=== PATIENT | female | born 1940 | race Caucasian/White ===

== ENCOUNTER → 2017-01-12 10:34 | Outpatient (CLI) | payer MEDICARE, OTHER ==
[2016-10-15 19:47] VITALS: BMI 28.0
[~2017-01-12 10:34] MED LIST: CARDIZEM CD180 MG PO; CORDARONE200 MG PO; EFFEXOR75 MG PO; FISH OIL 1,0001 CA1 PO; LAMICTAL100 MG PO; LOW DOSE ASPIRI81 M1 PO; MYSOLINE 50 MG50 MG PO; PACERONE200 MG PO; PERI-COLACE TAB1 TAB PO; PLAVIX75 MG PO; PRAVACHOL20 MG; PRAVACHOL20 MG PO; PRILOSEC20 MG PO; PRINIVIL20 MG PO; PROAIR HFA8.5 GM INH; TENORMIN25 MG PO; XARELTO15 MG PO; ZITHROMAX250 MG PO; ZYRTEC10 MG PO
== END | disposition home or self-care (01) ==
LOC: D.CT 10:34
DX: R41.3 Other amnesia (principal)

== ENCOUNTER 2017-02-08 01:47 | Emergency (ER) | payer MEDICARE, OTHER ==
[2016-10-15 19:47] VITALS: BMI 28.0
[2017-02-08 03:28] LABS: APPEARANCE CLEAR (CLEAR); BILIRUBIN NEGATIVE (NEGATIVE); COLOR YELLOW (YELLOW); GLUCOSE NEGATIVE (NEGATIVE); KETONE NEGATIVE (NEGATIVE); LEUKOCYTE ESTERASE NEGATIVE (NEGATIVE); NITRITE NEGATIVE (NEGATIVE); PROTEIN NEGATIVE (NEGATIVE); SPECIFIC GRAVITY 1.015 (1.005-1.020); UROBILINOGEN NORMAL (NORMAL)
[2017-02-08 03:29] LABS: BASOPHILS 0.2 % (0-2); EOSINOPHILS 4.2 % (0-7); HEMATOCRIT 37.2 % (36.0-48.0); IMMATURE GRANULOCYTES 0.1 % (0-5); LYMPHOCYTES 18.9 % (15-50); MCHC 32.3 g/dL (31.0-37.0); MCV 99.2 fL (80.0-100.0); MONOCYTES 13.8 % (2-11); NEUTROPHILS 62.8 % (40-80); PLATELET COUNT 167 10x3/uL (130-400); RBC 3.75 10x6/uL (4.00-5.40); RDW 13.9 % (11.5-14.5); WBC 8.4 10x3/uL (4.8-10.8)
[2017-02-08 03:37] LABS: ALBUMIN 3.6 g/dL (3.4-5.0); BILIRUBIN - TOTAL 0.3 mg/dL (0.2-1.3); CALCIUM 8.7 mg/dL (8.5-10.1); CARBON DIOXIDE 28.5 mmol/L (21.0-32.0); CREATININE - SERUM 2.4 mg/dL (0.6-1.3); POTASSIUM - SERUM 3.5 mmol/L (3.5-5.1); PROTEIN - SERUM 6.9 g/dL (6.4-8.2)
== END 2017-02-08 06:01 | disposition home or self-care (01) ==
LOC: D.ER 01:47
PROVIDERS: Emergency Medicine Emergency Medical Services
DX: S39.012A Strain of muscle, fascia and tendon of lower back, initial encounter (principal); X58.XXXA Exposure to other specified factors, initial encounter; Y93.89 Activity, other specified; Y92.89 Other specified places as the place of occurrence of the external cause; E86.0 Dehydration; Z95.1 Presence of aortocoronary bypass graft; I10 Essential (primary) hypertension; Z95.0 Presence of cardiac pacemaker

== ENCOUNTER 2017-06-15 14:11 | Emergency (ER) | payer MEDICARE, OTHER ==
[2016-10-15 19:47] VITALS: BMI 28.0
[2017-06-15 15:51] LABS: APPEARANCE CLEAR (CLEAR); BILIRUBIN NEGATIVE (NEGATIVE); COLOR YELLOW (YELLOW); GLUCOSE NEGATIVE (NEGATIVE); KETONE NEGATIVE (NEGATIVE); LEUKOCYTE ESTERASE NEGATIVE (NEGATIVE); NITRITE NEGATIVE (NEGATIVE); PROTEIN NEGATIVE (NEGATIVE); UROBILINOGEN NORMAL (NORMAL)
[2017-06-15 16:12] LABS: BASOPHILS 0.4 % (0-2); EOSINOPHILS 3.4 % (0-7); HEMATOCRIT 38.9 % (36.0-48.0); HEMOGLOBIN 12.9 g/dL (12-16); IMMATURE GRANULOCYTES 0.1 % (0-5); LYMPHOCYTES 14.3 % (15-50); MCH 33.3 pg (26.0-34.0); MCHC 33.2 g/dL (31.0-37.0); MCV 100.5 fL (80.0-100.0); MEAN PLATELET VOLUME 11.1 fL (7.4-10.4); MONOCYTES 10.5 % (2-11); NEUTROPHILS 71.3 % (40-80); PLATELET COUNT 150 10x3/uL (130-400); RBC 3.87 10x6/uL (4.00-5.40); RDW 13.2 % (11.5-14.5); WBC 6.9 10x3/uL (4.8-10.8)
[2017-06-15 16:27] LABS: APTT 28.9 SECONDS (22.8-39.4); INR 1.04 (0.85-1.17); PROTIME 13.4 SECONDS (11.6-15.0)
[2017-06-15 16:33] LABS: ALBUMIN 3.6 g/dL (3.4-5.0); ALKALINE PHOSPHATASE 118 U/L (46-116); ALT (SGPT) 54 U/L (10-68); BILIRUBIN - TOTAL 0.27 mg/dL (0.2-1.3); CALC OSMOLALITY 285 mosm/kg (275-300); CALCIUM 8.8 mg/dL (8.5-10.1); CARBON DIOXIDE 29.9 mmol/L (21.0-32.0); CHLORIDE - SERUM 100 mmol/L (98-107); CREATININE - SERUM 1.7 mg/dL (0.6-1.3); GLUCOSE 114 mg/dL (74-106); POTASSIUM - SERUM 3.6 mmol/L (3.5-5.1); PROTEIN - SERUM 7.5 g/dL (6.4-8.2); SODIUM 139 mmol/L (136-145); UREA NITROGEN 32 mg/dL (7-18); eGFR NON AFRICAN AMERICAN 31 mL/min (90-120)
[2017-06-15 16:37] LABS: CREATINE KINASE 97 UL (21-215)
[2017-06-15 16:38] LABS: TROPONIN-I < 0.017 ng/mL (0.000-0.060)
== END 2017-06-15 20:03 | disposition home or self-care (01) ==
LOC: D.ER 14:11
PROVIDERS: Emergency Medicine; Nurse Practitioner Acute Care
DX: K59.00 Constipation, unspecified (principal); I10 Essential (primary) hypertension; Z95.0 Presence of cardiac pacemaker; I44.7 Left bundle-branch block, unspecified

== ENCOUNTER → 2017-08-22 09:51 | Outpatient (CLI) | payer MEDICARE, OTHER ==
[2016-10-15 19:47] VITALS: BMI 28.0
[~2017-08-22 09:51] MED LIST changes: +AUGMENTIN 875-11 TAB PO; +DOXYCYCLINE HY100 M2 PO; +EFFEXOR XR75 MG PO; +VESICARE10 MG PO
== END | disposition home or self-care (01) ==
LOC: D.CT 09:00
DX: N28.89 Other specified disorders of kidney and ureter (principal)

== ENCOUNTER 2017-09-05 13:44 | Inpatient (IN) | payer MEDICARE, OTHER ==
[~2017-09-05] VITALS: Ht 162.6 cm; Wt 65.8 kg
[~2017-09-05 13:44] MED LIST changes: -AUGMENTIN 875-11 TAB PO; -DOXYCYCLINE HY100 M2 PO; -EFFEXOR XR75 MG PO; -VESICARE10 MG PO
[2017-09-05 14:39] LABS: BASOPHILS 0.1 % (0-2); EOSINOPHILS 0.4 % (0-7); HEMATOCRIT 41.2 % (36.0-48.0); HEMOGLOBIN 13.5 g/dL (12-16); IMMATURE GRANULOCYTES 0.2 % (0-5); LYMPHOCYTES 10.8 % (15-50); MCH 32.6 pg (26.0-34.0); MCHC 32.8 g/dL (31.0-37.0); MCV 99.5 fL (80.0-100.0); MEAN PLATELET VOLUME 11.3 fL (7.4-10.4); MONOCYTES 8.9 % (2-11); NEUTROPHILS 79.6 % (40-80); RBC 4.14 10x6/uL (4.00-5.40); RDW 13.7 % (11.5-14.5); WBC 16.1 10x3/uL (4.8-10.8)
[2017-09-05 14:45] LABS: PLATELET COUNT 200 10x3/uL (130-400)
[2017-09-05 15:02] LABS: ALBUMIN 3.8 g/dL (3.4-5.0); ANION GAP 15.7 mmol/L (8-16); BILIRUBIN - TOTAL 0.73 mg/dL (0.2-1.3); CARBON DIOXIDE 28.4 mmol/L (21.0-32.0); CREATININE - SERUM 1.5 mg/dL (0.6-1.3); POTASSIUM - SERUM 3.1 mmol/L (3.5-5.1)
[2017-09-05 15:29] LABS: APPEARANCE CLEAR (CLEAR); BILIRUBIN NEGATIVE (NEGATIVE); COLOR YELLOW (YELLOW); GLUCOSE NEGATIVE (NEGATIVE); KETONE NEGATIVE (NEGATIVE); NITRITE NEGATIVE (NEGATIVE); PROTEIN TRACE mg/dL (NEGATIVE); UROBILINOGEN NORMAL (NORMAL)
[2017-09-05 15:30] LABS: BACTERIA MANY /hpf (NONE SEEN); EPITHELIAL CELLS 0-5 /hpf (0-5); RED CELLS - URINE 0-5 /hpf (0-5); WHITE CELLS - URINE 25-50 /hpf (0-5)
--- NOTE | 2017-09-05 19:00 | NUR ---
REPORT RECEIVED AND CARE OF PT ASSUMED. PT LYING IN SEMI HARRINGTON'S POSITION VISITING WITH HER DAUGHTER. IV IN LEFT UPPER ARM PATENT WITH NS INFUSING AT 80 ML/ HR. WILL MONITOR CLOSELY FOR NEEDS.
--- NOTE | 2017-09-05 19:41 | NUR ---
PT OFF FLOOR TO RADIOLOGY VIA WHEELCHAIR.
--- NOTE | 2017-09-05 20:00 | NUR ---
PT RETURNED TO FLOOR FROM RADIOLOGY.
--- NOTE | 2017-09-05 22:29 | NUR ---
RECEIVED ORDER FROM DR BOATENG FOR NORCO 5 PRN Q8HR FOR PAIN IN JAW AND EAR.
[2017-09-05 22:39] VITALS: BP 188/101; BMI 24.9
[2017-09-05 23:01] VITALS: BP 188/101
[2017-09-05] MEDS ORDERED: EFFEXOR XR75 MG PO (23:08)
[2017-09-05] MEDS ORDERED: VESICARE10 MG PO (23:08)
--- NOTE | 2017-09-05 23:09 | NUR ---
ADMISSION ASSESSMENT AND HISTORY COMPLETE.
--- NOTE | 2017-09-05 23:58 | NUR ---
GAVE NORCO 5 PO PER PRN ORDER PER PT REQUEST FOR PAIN IN LEFT FACE AND EAR. WILL MONITOR FOR EFFECTIVENESS.
[2017-09-06 04:46] VITALS: BP 117/72
[2017-09-06 05:22] LABS: BASOPHILS 0.1 % (0-2); EOSINOPHILS 0.7 % (0-7); HEMOGLOBIN 12.7 g/dL (12-16); IMMATURE GRANULOCYTES 0.2 % (0-5); LYMPHOCYTES 13.3 % (15-50); MCH 32.6 pg (26.0-34.0); MCHC 33.4 g/dL (31.0-37.0); MEAN PLATELET VOLUME 11.1 fL (7.4-10.4); MONOCYTES 12.4 % (2-11); NEUTROPHILS 73.3 % (40-80); PLATELET COUNT 185 10x3/uL (130-400); RDW 13.6 % (11.5-14.5); WBC 15.8 10x3/uL (4.8-10.8)
[2017-09-06 05:33] LABS: MCV 97.4 fL (80.0-100.0)
[2017-09-06 05:41] LABS: ALBUMIN 3.2 g/dL (3.4-5.0); BILIRUBIN - TOTAL 0.6 mg/dL (0.2-1.3); CALCIUM 8.8 mg/dL (8.5-10.1); CARBON DIOXIDE 27.1 mmol/L (21.0-32.0); CREATININE - SERUM 1.4 mg/dL (0.6-1.3); PROTEIN - SERUM 7.5 g/dL (6.4-8.2)
[2017-09-06 05:48] LABS: ANION GAP 13.5 mmol/L (8-16); POTASSIUM - SERUM 2.6 mmol/L (3.5-5.1)
--- NOTE | 2017-09-06 06:11 | NUR ---
POTASSIUM LEVEL CRITICALLY LOW AT 2.[address] BOATENG WHO ORDERED THE ELECTROLYTE REPLACEMENT PROTOCOL.
--- NOTE | 2017-09-06 06:17 | NUR ---
WILL GIVE POTASSIUM PO 20 MEQ Q2 HR X3 DOSES. FIRST DOSE NOW...WILL PASS ON IN REPORT.
--- NOTE | 2017-09-06 08:05 | NUR ---
UP AT BEDSIDE WITH FAMILY TO VISIT.PT WITHOUT DISTRESS.CALL LIGHT IN REACH
[2017-09-06 08:42] VITALS: BP 183/75
--- NOTE | 2017-09-06 09:35 | NUR ---
RECIEVED ORDERS TO APPLY SCD'S TO PT, WHILE APPLYING SCD'S AND GIVING PT SECOND RIDER PROFESSOR OF BUSINESS ADMINISTRATION CAME IN AND ADVISED PT WAS NOW BEING PLACED UNDER CONTACT ISOLATION UNTIL FURTHER NOTICE DUE TO ADMITTING DX, PT AND FAMILY VERY UNDERSTANDING. CONTINUE WITH PT CARE PLAN
[2017-09-06 11:26] VITALS: BP 162/76
--- NOTE | 2017-09-06 12:13 | NUR ---
Patient Name: LIANA AREVALO Admission Status: Elective Accout number: [id number] Admission Date: 09-05-2017 : 1940 Admission Diagnosis: Attending: RIGO BOATENG Current LOS: 1 Anticipated DC Date: 09-08-2017 Planned Disposition: Home Primary Insurance: MEDICARE A & B Discharge Planning Comments: CM MET WITH PATIENT AND CALLED DAUGHTER (SERGIO) REGARDING D/C NEEDS AND PLANS. PATIENT LIVES ALONE AT [facility] AND HAS A COMMUNICATION LECTURER ([place]) THAT COMES 2-3X DAILY. PATIENT STATE SHE HAS NO STEPS OR STAIRS TO USE AT HER HOME. PATIENTS STATED SHE HAS HELP WITH BATHING, DRESSING, AND MEDICATION. PATIENT HAS A CANE AND SHOWER STOOL AT HOME. PATIENTS PCP IS DR. BOATENG AND PHARMACY IS [facility]. PATIENT IS REFUSING HOME HEALTH AT THIS TIME. CM WILL CONTINUE TO FOLLOW PATIENT WITH D/C NEEDS AND PLANS. PCP [facility]- [phone] SERGIO (DAUGHTER) [phone] Premises Technician: Charissa Leigh Is the patient Alert and Oriented? Yes 0 * How many steps to enter\exit or inside your home? 0 0 * PCP DR. BOATENG 0 * Pharmacy [facility] 0 * Preadmission Environment Home Alone 0 * ADLs Partial Dependent 0 * Partial ADLs (Assistance needed) Ambulation Bathing Dressing Medication Management 0 * Equipment Cane Shower Chair 0 * List name and contact numbers for known caregivers / representatives who currently or will assist patient after discharge: SERGIO MCMAHON [phone] 0 * Community resources currently utilized Other 0 * Please name any agencies selected above. [facility] ([facility]) [phone] 0 * Additional services required to return to the preadmission environment? Yes 0 * Can the patient safely return to the preadmission environment? Yes 0 * Has this patient been hospitalized within the prior 30 days at any hospital? No 0 Grand Total: 0
--- NOTE | 2017-09-06 13:49 | NUR ---
CALLED [facility] AND PER [facility] SYSTEM WENT DOWN YESTERDAY SO REPORTS DID NOT DOWNLOAD WILL CALL DR BOATENG'S OFFICE TO SEE IF HE WANTS REPORT FAXED
--- NOTE | 2017-09-06 13:56 | NUR ---
CALLED [facility] AND SPOKE TO RICKEY, ASKED TO FAX REPORT TO [phone]
[2017-09-06 14:35] VITALS: Ht 162.6 cm; Wt 65.8 kg
[2017-09-06 16:10] VITALS: BP 130/73
--- NOTE | 2017-09-06 16:11 | NUR ---
CALLED [facility] SPOKE WITH SIMON IN REGARDS TO FAXED CT REPORT AT 1356. STATED SHE WOULD CHECK FAX AND LET ME KNOW, PER ROD IN READING ROOM INTERFACE WAS DOWN YESTERDAY THEREFORE REPORTS HAVE BEEN PENDED AND NOT UPLOADED TO SYSTEM.
--- NOTE | 2017-09-06 19:38 | NUR ---
PATIENT'S DAUGHTER CAME TO THE NURSING DESK IRRATE AND DEMANDING RESULTS FOR THE FLU TEST. SHE THREATENED TO CALL KAY THE DON IF SHE DIDN'T HAVE THE RESULTS IN 5 MINUTS. RAPID FLU TEST RESULTS ARE STILL PENDING.
[2017-09-06 20:00] VITALS: BP 156/97
[2017-09-07] VITALS: BP 133/79
--- NOTE | 2017-09-07 01:41 | NUR ---
PATIENT CONFUSED, UNSTEADY ON FEET, FIDGETY WITH GOWN. SCOTTY ALARM TURNED ON, PATIENT REORIENTATATED TO CALL LIGHT.
--- NOTE | 2017-09-07 02:00 | NUR ---
PT RESTING IN BED WITH NO DISTRESS. RESPIRATIONS EVEN AND UNLABORED. ISOLATION PRECAUTIONS IN PLACE. SIDE RAILS X 2. BED LOW. BED ALARM ON. CALL LIGHT IN REACH.
[2017-09-07 04:00] VITALS: BP 138/72
[2017-09-07 05:31] LABS: BASOPHILS 0.2 % (0-2); EOSINOPHILS 1.9 % (0-7); HEMATOCRIT 38.2 % (36.0-48.0); HEMOGLOBIN 12.7 g/dL (12-16); IMMATURE GRANULOCYTES 0.3 % (0-5); LYMPHOCYTES 12.9 % (15-50); MCH 32.7 pg (26.0-34.0); MCHC 33.2 g/dL (31.0-37.0); MCV 98.5 fL (80.0-100.0); MEAN PLATELET VOLUME 11.5 fL (7.4-10.4); MONOCYTES 13.7 % (2-11); PLATELET COUNT 172 10x3/uL (130-400); RBC 3.88 10x6/uL (4.00-5.40); RDW 13.7 % (11.5-14.5)
[2017-09-07 05:42] LABS: WBC 11.2 10x3/uL (4.8-10.8)
[2017-09-07 06:05] LABS: ALBUMIN 3.1 g/dL (3.4-5.0); BILIRUBIN - TOTAL 0.52 mg/dL (0.2-1.3); CALCIUM 8.9 mg/dL (8.5-10.1); CARBON DIOXIDE 23.2 mmol/L (21.0-32.0); CREATININE - SERUM 1.2 mg/dL (0.6-1.3); PROTEIN - SERUM 7.5 g/dL (6.4-8.2)
[2017-09-07 06:28] LABS: ANION GAP 17.8 mmol/L (8-16)
--- NOTE | 2017-09-07 08:31 | NUR ---
VANCOMYCIN LEVEL OF 5.1. THIS WAS AFTER ONE DOSE ONLY SO NOT AT STEADY STATE. WILL CONTINUE TO MONITOR PT'S RENAL FXN AND ADJUST ACCORDINGLY.
[2017-09-07 08:45] VITALS: BP 109/82
[2017-09-07 12:36] VITALS: BP 185/70
[2017-09-07 16:47] VITALS: BP 178/77
--- NOTE | 2017-09-07 20:10 | NUR ---
AWAKE WITH CONFUSION NOTED. FAMILY AT BEDSIDE.IV INFUSING TO LEFT WRIST WITHOUT REDNESS OR EDEMA NOTED.BELOW ELBOW AMPUTEE TO RIGHT ARM NOTED. LEFT NECK WITH REDNESS AND EDEMA NOTED.. CL IN REACH. SR UP X 2
[2017-09-07 21:36] VITALS: BP 177/76
--- NOTE | 2017-09-08 00:46 | NUR ---
PATIENT IS RESTING QUIETLY WITH EYES CLOSED. LAYING IN THE PRONE POSITION. BED IN LOWEST POSITION, CALL LIGHT IN REACH. BED RIALS UP X'S 2. SCOTTY MAT ALARM ON. CONTACT ISOLATION PRECAUTIONS.
--- NOTE | 2017-09-08 01:49 | NUR ---
EYES CLOSED. RESP EVEN AND UNALBORED. CL IN REACH. BED ALARM ON.
[2017-09-08 05:12] LABS: BASOPHILS 0.4 % (0-2); EOSINOPHILS 4.9 % (0-7); HEMATOCRIT 37.7 % (36.0-48.0); HEMOGLOBIN 12.3 g/dL (12-16); IMMATURE GRANULOCYTES 0.3 % (0-5); LYMPHOCYTES 21.8 % (15-50); MCH 32.4 pg (26.0-34.0); MCHC 32.6 g/dL (31.0-37.0); MCV 99.2 fL (80.0-100.0); MEAN PLATELET VOLUME 11.6 fL (7.4-10.4); MONOCYTES 13.7 % (2-11); NEUTROPHILS 58.9 % (40-80); PLATELET COUNT 233 10x3/uL (130-400); WBC 10.4 10x3/uL (4.8-10.8)
[2017-09-08 05:31] LABS: ANION GAP 13.4 mmol/L (8-16); BILIRUBIN - TOTAL 0.4 mg/dL (0.2-1.3); CARBON DIOXIDE 26.1 mmol/L (21.0-32.0); CREATININE - SERUM 1.3 mg/dL (0.6-1.3); POTASSIUM - SERUM 3.5 mmol/L (3.5-5.1); PROTEIN - SERUM 7.5 g/dL (6.4-8.2)
--- NOTE | 2017-09-08 05:49 | NUR ---
UP TO BATHROOM WIHT ASSIST.TOLERATES WELL. BACK TO BED WIHT NO COMPLIANTS. CL IN REACH. BED ALARM ON.
[2017-09-08 06:57] VITALS: BP 214/75
--- NOTE | 2017-09-08 06:57 | NUR ---
NOTIFIED URVASHI FARFAN, PATIENT'S ASSIGNED NURSE OF PATIENT'S BP
[2017-09-08 09:13] VITALS: BP 149/92
--- NOTE | 2017-09-08 10:30 | NUR ---
PT IS UP MAKING HER BED, SHE IS VERY CONFUSED TODAY WHERE SHE IS AND STATED SHE IS NOT FAMILIAR WITH THIS ROOM. PT DAUGHTER IN EARLIER AND HAD CONCERNS OF PT BEING SENT HOME ALONE. ADVISED HER CASE MANAGEMENT WILL SPEAK WITH THEM IN THE MORNING
--- NOTE | 2017-09-08 11:50 | NUR ---
UP AD MILTON IN ROOM. CONTACT ISOLATION. DENIES ANY NEEDS AT THIS TIME.
[2017-09-08 12:30] VITALS: BP 154/66
--- NOTE | 2017-09-08 16:13 | NUR ---
PT IS LYING IN BED EYES DIRECTED TOWARDS TV. TURNED ON [employer] CHANNEL TO CALM AND SETTLE PATIENT. PT INQUIRING ON WHEN SHE WILL BE MOVED BACK TO HER ROOM SO SHE CAN GET HER REGULAR CLOTHES ON BEFORE FAMILY COMES FOR THE HIOLIDAY. REORIENTED PT BACK TO BEING IN HOSPITAL AND PT IN CORRECT ROOM. PT STATED "OH THATS RIGHT, NOT SURE WHAT I WAS THINKING."
[2017-09-08 17:39] VITALS: BP 164/55
[2017-09-08 21:54] VITALS: BP 196/64
--- NOTE | 2017-09-08 22:40 | NUR ---
SQUAD BOSS INFORMED THAT THE PATIENT'S IV HAD COME OUT CATH TIP IN TACT LYING ON THE FLOOR. WILL ATTEMPT TO RESITE IV. PT DENIES ANY OTHER NEEDS AT THIS TIME. CALLL LIGHT IN REACH.
[2017-09-09] VITALS: BP 197/91
--- NOTE | 2017-09-09 01:04 | NUR ---
IV RESITED 22G LEFT AC X2 ATTEMPT WITH GOOD BLOOD RETURN. IV FLUIDS RESTARTED AT THIS TIME. PT DENIES ANY OTHER NEEDS. WILL CONTINUE WITH PLAN OF CARE.
[2017-09-09 04:00] VITALS: BP 144/87
[2017-09-09 04:28] LABS: BASOPHILS 0.3 % (0-2); EOSINOPHILS 3.9 % (0-7); HEMATOCRIT 33.9 % (36.0-48.0); HEMOGLOBIN 11.2 g/dL (12-16); IMMATURE GRANULOCYTES 0.5 % (0-5); LYMPHOCYTES 23.1 % (15-50); MCH 32.2 pg (26.0-34.0); MCV 97.4 fL (80.0-100.0); MEAN PLATELET VOLUME 11.4 fL (7.4-10.4); MONOCYTES 11.9 % (2-11); NEUTROPHILS 60.3 % (40-80); PLATELET COUNT 209 10x3/uL (130-400); RBC 3.48 10x6/uL (4.00-5.40); RDW 13.8 % (11.5-14.5); WBC 10.1 10x3/uL (4.8-10.8)
[2017-09-09 04:45] LABS: ANION GAP 15.8 mmol/L (8-16); BILIRUBIN - TOTAL 0.4 mg/dL (0.2-1.3); CALCIUM 8.8 mg/dL (8.5-10.1); CARBON DIOXIDE 22.6 mmol/L (21.0-32.0); CREATININE - SERUM 1.5 mg/dL (0.6-1.3); POTASSIUM - SERUM 3.4 mmol/L (3.5-5.1)
--- NOTE | 2017-09-09 07:20 | NUR ---
REPORT RECEIVED FROM SCHEDULER MAINTENANCE NURSE. CALL LIGHT IN REACH.
[2017-09-09] MEDS ORDERED: AUGMENTIN 875-11 TAB PO (08:25)
[2017-09-09] MEDS ORDERED: DOXYCYCLINE HY100 M2 PO (08:25)
[2017-09-09 08:29] VITALS: BP 201/92
--- NOTE | 2017-09-09 08:35 | NUR ---
ASSESSMENT COMPLETED. VANC IVPB. CALL LIGHT IN REACH. WILL CONTINUE WITH PLAN OF CARE.
--- NOTE | 2017-09-09 10:19 | NUR ---
CM REASSESSMENT NOTE: PATIENT IS DISCHARGING HOME TODAY/DAUGHTER DRIVING HER. IMM SERVED AND PATIENT REF. HH AND HAD NO OTHER NEEDS FOR DISCHARGE.
--- NOTE | 2017-09-09 10:54 | NUR ---
IV DC'D WITH TIP INTACT.
--- NOTE | 2017-09-09 10:57 | NUR ---
PT WITHOUT SIGNS OF ACUTE DISTRESS, GATHERING PERSONAL BELONGINGS FOR DISCHARGE. NO NEEDS VOICED AT THIS TIME.
--- NOTE | 2017-09-09 11:40 | NUR ---
DC INSTRUCTIONS EXPLAINED TO PATIENT. VERBALIZED UNDERSTANDING.
--- NOTE | 2017-09-09 12:15 | NUR ---
DC'D TO VEHICLE VIA WC WITH DAUGHTER.
[2017-09-15 19:11] LABS: AEROBE ID Final report (())
[2017-09-16 20:09] LABS: AEROBE ID Final report (())
[2017-09-19 17:11] LABS: AEROBE ID Final report (())
[2017-09-20 15:20] LABS: AEROBE ID Final report (())
[2017-09-22 19:11] LABS: AEROBE ID Final report (()); RESULT 1 Leuconostoc species (())
--- NOTE | 2017-11-01 07:19 | DS ---
PATIENT:LIANA AREVALO :40 MEDICAL RECORD: [id number] DISCHARGE SUMMARY ADMISSION DATE: 09/05/17 DISCHARGE DATE: 09/09/17 DATE OF ADMISSION: 09/05/2017 DATE OF DISCHARGE: 09/09/2017 CONDITION ON DISCHARGE: Improved. ADMITTING DIAGNOSES: Cellulitis of the face, neck mass, and fever. DISCHARGE DIAGNOSES: Cellulitis of face, acute parotid inflammation, essential hypertension, chronic kidney disease, history of cardiac pacemaker, and history of TIAs. HOSPITAL COURSE: This patient is a 77-year-old female, patient of Dr. García. The patient presented to the clinic complaining of having fever and chills, swelling in the left jaw as well as in the left neck. On physical examination, the patient was alert. She was oriented times 3. She did have moderate amount of edema over the left jaw area with erythema present. There was warmth. She did have shotty left submandibular adenopathy. Her heart had a regular rate without murmurs, gallops or rubs. Lungs clear. The patient had a white count elevated at 16.1 with a hemoglobin 13.5, hematocrit 41.2 and her platelets were 200. She did have a left shift. Sodium was 138, potassium was low at 3.1, chloride was 97, BUN was 25, creatinine 1.5. The patient was admitted to the hospital. She was seen in consultation by Dr. Guan as well as Dr. Ocampo. Dr. Ocampo of ear, nose and throat and infectious disease, Dr. Guan. The patient had a chest x-ray. The chest x-ray revealed no acute cardiopulmonary abnormalities. Facial bone CT scan revealed significant soft tissue edema in the left hemimandible involving the left parotid gland, several prominent cervical lymph nodes were noted as well. No osseous abnormalities could be appreciated. Soft tissue neck CT revealed significant edema, enlargement of left parotid gland, soft tissue swelling overlying the left hemimandible with asymmetric enlargement of the left submandibular gland prominent at left palatine tonsil. Findings were nonspecific, particularly given the lack of intravenous contrast. It was felt that this possibly was secondary to infectious process. Chest x-ray showed chronic interstitial changes. On the morning of the , the patient was no longer febrile. Her white count had decreased to 10.1, hemoglobin 11.2, hematocrit 33.9 and platelets were 209. Her last BMP showed a sodium of 142, potassium 3.4, chloride 107, CO2 was 22.6, BUN was 26, creatinine 1.5. The patient had been treated with vancomycin as well as Unasyn. Symptoms were resolving. DISCHARGE MEDICATIONS: The patient was discharged home on Augmentin as well as doxycycline. She was given 100 mg q.12 hours for 10 days doxycycline, Augmentin 875 mg 1 p.o. b.i.d. for 10 days, aspirin 81 mg once a day, Lamictal 100 mg p.o. b.i.d., lisinopril 20 mg daily, Cardizem-CD 180 mg once a day, Tenormin 25 mg 1 p.o. every day, Cordarone 200 b.i.d., Zyrtec 10 mg p.o. q.h.s., Mysoline 50 mg p.o. every day, Nasra-Colace 1 tablet b.i.d., ProAir 90 mcg 2 puffs q. 4 hours p.r.n. shortness of breath, Effexor 75 mg 1 p.o. every day, VESIcare 10 mg once a day. DISCHARGE INSTRUCTIONS: The patient was to follow up with Dr. García in 1 week. DISCHARGE SUMMARY REPORT [id number] LIANA AREVALO ACTIVITIES: Ad arnie. TRANSINT:[id number] Voice Confirmation ID: [id number] DOCUMENT ID: [id number] TED HAZEL MD at 0719 CC: [id number] DICTATION DATE: 10/30/17 1322 COMMUNICATION SPECIALIST: 10/30/17 1657 DIS IN 09/09/17 [address] [id number] [place] [address]
== END 2017-09-09 12:15 | disposition home or self-care (01) | DRG 155 ==
LOC: D.MS 13:44
PROVIDERS: ADMIT Family Medicine
DX: K11.21 Acute sialoadenitis (principal); L03.211 Cellulitis of face; I10 Essential (primary) hypertension; N18.9 Chronic kidney disease, unspecified; Z95.0 Presence of cardiac pacemaker; Z86.73 Personal history of transient ischemic attack (TIA), and cerebral infarction without residual deficits

== ENCOUNTER → 2018-09-19 07:08 | Outpatient (CLI) | payer MEDICARE, OTHER ==
[2017-09-06 14:35] VITALS: BMI 24.9
[~2018-09-19 07:08] MED LIST changes: +AUGMENTIN 875-11 TAB PO; +DOXYCYCLINE HY100 M2 PO; +EFFEXOR XR75 MG PO; +VESICARE10 MG PO
== END | disposition home or self-care (01) ==
LOC: D.US 07:08
DX: N28.1 Cyst of kidney, acquired (principal)

== ENCOUNTER 2020-01-04 05:30 | Emergency (ER) | payer MEDICARE ==
[~2020-01-04] VITALS: Ht 162.6 cm; Wt 68.0 kg
[~2020-01-04 05:30] MED LIST changes: +NAPROSYN500 MG PO; +ZPAK PO
[2020-01-04 05:34] VITALS: Ht 162.6 cm; Wt 68.0 kg
[2020-01-04] MEDS ORDERED: LAMICTAL100 MG (05:45)
[2020-01-04 07:26] VITALS: BP 145/82
== END 2020-01-04 07:27 | disposition home or self-care (01) ==
LOC: D.ER 05:30
DX: S00.03XA Contusion of scalp, initial encounter (principal); W22.8XXA Striking against or struck by other objects, initial encounter; Y93.9 Activity, unspecified; Y92.9 Unspecified place or not applicable; Z86.73 Personal history of transient ischemic attack (TIA), and cerebral infarction without residual deficits; I10 Essential (primary) hypertension; I25.2 Old myocardial infarction; Z95.0 Presence of cardiac pacemaker; Z95.1 Presence of aortocoronary bypass graft

== ENCOUNTER → 2020-06-18 13:24 | Outpatient (CLI) | payer MEDICARE, OTHER ==
[2020-01-04 05:34] VITALS: BMI 24.4
[~2020-06-18 13:24] MED LIST changes: +LAMICTAL100 MG
== END | disposition home or self-care (01) ==
LOC: D.CT 13:24
PROVIDERS: ATTEND Orthopaedic Surgery
DX: M43.10 Spondylolisthesis, site unspecified (principal)